=== PATIENT | male | born 1940 | race Caucasian/White ===

== ENCOUNTER → 2021-11-20 09:52 | Outpatient (REF) | payer MEDICARE, SELFPAY | LOC: ANHLAB 09:52 | PROVIDERS: PCP Internal Medicine; Visit Provider Nurse Practitioner | DX: C44.729 Squamous cell carcinoma of skin of left lower limb, including hip (principal) | CPT/HCPCS: 88305; 88331 ==

== ENCOUNTER 2022-01-03 14:06 | Outpatient (CLI) | payer MEDICARE, SELFPAY ==
--- NOTE | ~2022-01-03 | US_ITS ---
EXAMINATION: US renal BI EXAM DATE: 01/03/2022 14:38 INDICATION: Chronic Kidney Disease Stage 3b TECHNIQUE: Multiple grayscale and Doppler images of the kidneys were obtained (by a technologist who performed the scan) and subsequently reviewed. There is no prior study for comparison. FINDINGS: Right kidney: There is normal contour and echogenicity. It measures 9.3 x 5.1 x 6.1 centimeters. Th ere are no focal renal lesions identified. There is no hydronephrosis. Left kidney: There is normal contour and echogenicity. It measures 10.4 x 5.7 x 6.7 centimeters. Th ere are no focal renal lesions identified. There is no hydronephrosis. Bladder unremarkable. IMPRESSION: 1. Sonographically unremarkable kidneys. Reviewed, dictated and finalized at location B. ON INFORMATION SPECIALIST
== END 2022-01-03 14:07 | disposition home or self-care (01) ==
LOC: ANHIMG 14:09
PROVIDERS: PCP Internal Medicine; Visit Provider Internal Medicine Nephrology
DX: N18.32 Chronic kidney disease, stage 3b (principal)
CPT/HCPCS: 76775

== ENCOUNTER 2022-11-04 10:25 | Inpatient (IN) | payer MEDICARE, SELFPAY ==
--- NOTE | ~2022-11-04 | CT_ITS ---
EXAMINATION: CT abdomen pelvis wo con DATE: 11/04/2022 13:11 INDICATION: Upper abdominal pain. TECHNIQUE: Computed tomography (CT) of the abdomen and pelvis was performed without intravenous contr ast. Automated exposure control and iterative reconstruction technique were employed. The dose-length product was 591.50 mGy-cm. COMPARISON: CT abdomen and pelvis 07/18/2017 FINDINGS: The visualized portions of the lung bases demonstrate mild atelectasis. No pleural effusion . The heart size is normal. There are coronary artery calcifications. No pericardial effusion. There are likely changes of coronary artery bypass grafting. Calcified left hilar lymph nodes are consisten t with old granulomatous disease. The liver is normal. There are changes of cholecystectomy. Calcific ations in the spleen are consistent with old granulomatous disease. The pancreas demonstrates enlarge ment, calcifications, duct dilatation, and surrounding fat stranding, consistent with [id number] c pancreatitis. The adrenal glands and right kidney are normal. There is a 3 mm stone in left kidney. There is a 10 mm cyst of left kidney. There is diverticulosis of the colon without evidence of diver ticulitis. The appendix is not visualized. There are no dilated loops of bowel. There are no patholog ically enlarged lymph nodes. There is no free intraperitoneal fluid. There is prominent fat in the in guinal canals that may be hernias. There is severe lumbar spondylosis. IMPRESSION: 1. Acute on chronic pancreatitis. Reviewed, dictated and finalized at location A. E ROLLER
[2022-11-04 10:50] VITALS: BP 124/75; PULSE 94; RESP 16; TEMP 36.4; O2SAT 100
--- NOTE | 2022-11-04 12:02 | ED.ABDPAIN ---
HPI - Abdominal Pain General Chief Complaint: Abdominal Pain Stated Complaint: ABD PAIN,N/V/D Time Seen by Provider: 11/04/22 11:51 History of Present Illness HPI narrative: 82-year-old male history of coronary artery disease status post CABG. Hyperlipidemia, diabetes, hypertension and distant history of pancreatitis presents emergency room with upper abdominal pain has been present for 10 days. Patient denies any radiating pain. Unable to describe pain but states that it is intermittent. Denies diarrhea or constipation. States became nauseated this morning which is what caused him to come seek Treatment. Related Data Home Medications Medication Instructions Recorded Confirmed aspirin 81 mg tablet,delayed 81 mg PO DAILY 01/03/21 08/01/22 release (Adult Low Dose Aspirin) hydrochlorothiazide 25 mg tablet 25 mg PO 07/16/22 08/01/22 Allergies Allergy/AdvReac Type Severity Reaction Status Date / Time No Known Allergies Allergy Unknown Verified 08/01/22 11:06 Review of Systems Review of Systems: CONSTITUTIONAL: Denies fever, chills, or sweats. EYES: Denies visual changes, redness, or discharge. ENT: Denies rhinorrhea, congestion, sore throat, or otalgia. CARDIOVASCULAR: Denies chest pain, palpitations, or edema. RESPIRATORY: Denies cough or dyspnea. GASTROINTESTINAL: Reports abdominal pain, nausea and vomiting GENITOURINARY: Denies dysuria or hematuria. SKIN: Denies rash or itching. MUSCULOSKELETAL: Denies back pain, joint pain, or myalgia. NEUROLOGIC: Denies headache, numbness, dizziness, or weakness. PSYCHIATRIC: Denies anxiety or depression. [facility], [facility] Past Medical History Medical History Bladder cancer CAD (coronary artery disease) Chronic pancreatitis 2008, x3 CRD (chronic renal disease), stage III Diabetes Heart attack Hyperkalemia Hyperlipidemia Hypertension Pancreatitis Peripheral neuropathy Squamous cell carcinoma of lower leg Type 2 diabetes mellitus with hyperglycemia, without long-term current use of insulin Vision loss Surgical History Surgical History History of appendectomy History of bladder surgery History of cataract surgery Hx of cholecystectomy S/P CABG (coronary artery bypass graft) Family History Family History Other Skin cancer Social History Social History Smoking status: Former smoker Alcohol intake: current Exam Narrative: GENERAL: Chronically ill appearing, well-nourished HEAD: Normocephalic, atraumatic. EYES: Conjunctivae normal, PERRLA and EOMI. CHEST: Clear to auscultation. No respiratory distress. No wheezes rales or rhonchi. HEART: Regular rate and rhythm. No murmur heard. Normal peripheral pulses. ABDOMEN: Soft, periumbilical/epigastric tenderness, nondistended, normal active bowel sounds. BACK: No CVA tenderness EXTREMITIES: Normal range of motion. No edema. No clubbing or cyanosis SKIN: Warm, dry, no rash. No noted wounds NEURO: No focal deficits. Alert and oriented x3. MAEW. CN's II-XI intact bilaterally PSYCH: Cooperative. Normal mood and affect. Course Course Emergency Course: 1330: 8 loss. Recommending hospitalization for hydration and pain management. Vital Signs Vital signs: Vital Signs Temperature 36.4 C L 11/04/22 10:50 Pulse Rate 94 11/04/22 10:50 Respiratory Rate 16 11/04/22 10:50 Blood Pressure 124/75 11/04/22 10:50 Pulse Oximetry 100 11/04/22 10:50 Temperature 36.4 C L 11/04/22 10:50 Pulse Rate 94 11/04/22 10:50 Respiratory Rate 16 11/04/22 10:50 Blood Pressure 124/75 11/04/22 10:50 Pulse Oximetry 100 11/04/22 10:50 MDM - Abdominal Pain MDM Narrative Medical decision making narrative: 82-year-old male presented to the emergency room for evaluation of upper abdominal pain
[2022-11-04 12:16] LABS: Basophils Absolute Auto 0.1 K/mm3 (0.0-0.1); Basophils Percent Auto 0.4 % (0.2-1.2); Eosinophils Percent Auto 0.1 % (0-4.4); Hematocrit 43.1 % (42.0-52.0); Immature Granulocyte Absolute 0.56 K/mm3 (0.00-0.031); Lymphocytes Absolute Auto 1.62 K/mm3 (0.9-3.2); Lymphocytes Percent Auto 8.8 % (18.3-44.2); Mean Corpuscular HGB Conc 34.8 g/dl (32-36); Mean Corpuscular Hemoglobin 31.1 pg (26-34); Mean Corpuscular Volume 89.2 fl (80-100); Mean Platelet Volume 9.7 fl (7.4-10.4); Monocytes Absolute Auto 0.8 K/mm3 (0.1-0.6); Monocytes Percent Auto 4.3 % (2.6-8.5); Neutrophils Absolute Auto 15.4 K/mm3 (1.3-6.7); Neutrophils Percent Auto 83.4 % (45.5-73.1); Platelet Count Result 232 k/mm3 (150-375); Red Blood Count 4.83 M/mm3 (4.6-6.20); Red Cell Distribution Width 14.6 % (11.5-14.5); White Blood Count 18.5 K/mm3 (4.5-10.0)
[2022-11-04 12:28] LABS: Alanine Aminotransferase 72 U/L (6-50); Alkaline Phosphatase 478 U/L (38-126); Anion Gap 15 mmol/L (8-16); Aspartate Amino Transferase 46 U/L (17-59); Bilirubin,Total 1.7 mg/dL (0.2-1.3); Blood Urea Nitrogen 65 mg/dL (9-20); Calcium 9.2 mg/dL (8.4-10.2); Carbon Dioxide 18 mmol/L (22-30); Chloride 100 mmol/L (98-107); Estimated CRCL calculation 21 ml/min; Estimated Glomerular Filt Rate 29; Glucose 303 mg/dL (65-110); Lipase 1683 U/L (23-300); Potassium 4.9 mmol/L (3.4-5.0); Sodium 133 mmol/L (137-145)
[2022-11-04] MEDS: SODIUM CHLORIDE 0.9% IV 1,000 ML 999 ML IV CONT ×2 (12:47→13:57)
[2022-11-04] MEDS: ONDANSETRON INJ 4 MG/2 ML VIAL IV PUSH (12:48)
[2022-11-04] MEDS: MORPHINE SULFATE (*CRX) 4 MG/ML INJ IV PUSH (12:48)
--- NOTE | 2022-11-04 13:08 | PC.NURSE ---
Patient unable to urinate at this time. Urinal placed at bedside.
[2022-11-04 13:42] LABS: Influenza A QL RT-PCR Negative (Negative); Influenza B QL RT-PCR Negative (Negative); RSV RNA, RT-PCR Negative (Negative); SARS-CoV-2 RNA PCR Negative
--- NOTE | 2022-11-04 13:45 | PM.IMHP ---
H&P: HPI History of Present Illness Date/Time: 11/04/22 13:45 Chief Complaint: Upper abdominal pain. Narrative: This is a very pleasant 82-year-old male with history of pancreatitis, insulin-dependent type 2 diabetes mellitus, hypertension, hyperlipidemia, chronic kidney disease, and coronary artery disease status post CABG who presented to the emergency department from home for evaluation of upper abdominal pain. He has not been feeling well for upwards of 10 days with a constant, aching discomfort in the epigastric region that at times is sharp and shooting in nature, radiating through to the back. The pain is worse when lying on either side and seems to be a bit better when sitting up. He has not noticed any significant relation to food though he admits that his appetite has been poor and he has had pretty persistent nausea with intermittent episodes of emesis. Otherwise he has been eating a bland diet to include toast and soup. He has not taken any medication at home for his symptoms. His symptoms are similar to when he had pancreatitis in the past. Vital signs were stable on arrival to the emergency department. Workup was significant for a WBC of 18.5, sodium 133, serum carbon dioxide 18, BUN 65, creatinine 2.20, glucose 303, total bili I 0.7, AST 46, ALT 72, alkaline phosphatase 478, lipase 1683. CT of the abdomen and pelvis showed findings of acute on chronic pancreatitis and he is being admitted in this setting for supportive care. At the time my evaluation he is feeling quite a bit better after receiving IV fluids, Zofran, and morphine. He has never been given a reason for prior episodes of pancreatitis (denies hypertriglyceridemia, heavy alcohol use, family history of such, etc. and he is status post cholecystectomy). Review of Systems Review of Systems: Twelve systems were reviewed. No fever but he has had some chills. No cold or flu symptoms. He denies chest pain shortness a breath. He had some loose stools within the last week but that is improving. No dysuria or other urinary symptoms. His glucose has been running high the last several days which he finds to be odd as he has not been eating much at all. Except as documented, all other systems were reviewed and are negative. [facility] Past Medical History Medical History (Updated 11/04/22 @ 15:04 by Augusta G. Gerling, PA-C) Benign prostatic hyperplasia Bladder cancer Chronic kidney disease, stage 3 Chronic pancreatitis Hyperlipidemia Hypertension Insulin dependent type 2 diabetes mellitus Peripheral neuropathy Squamous cell carcinoma of lower leg Type 2 diabetes mellitus with hyperglycemia, without long-term current use of insulin Vision loss Surgical History Surgical History (Updated 11/04/22 @ 14:56 by Augusta Mantilla PA-C) History of appendectomy History of bladder surgery History of cataract surgery History of cholecystectomy History of coronary artery bypass graft Family History Family History Other Skin cancer Social History Social History (Updated 11/04/22 @ 14:59 by Augusta Mantilla PA-C) Social History: Surrogate medical decision maker: Claudia Montemayor, spouse. Code status: Full code. Smoking status: Former smoker Alcohol intake: current Alcohol use details: Social alcohol use in moderation. Additional living arrangements comments: Lives in [place] with spouse. Originally from [place]. 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 Meds Home Medications and Allergies Home Medications Medication Instructions Recorded Confirmed Type aspirin 81 mg tablet,delayed 81 mg PO DAILY 01/03/21 08/01/22 History release (Adult Low Dose Aspirin) blood-glucose meter #1 ea 06/06/21 08/01/22 Rx pen needle, diabetic 31 gauge x #200 ea 02/20/22 08/01/22 Rx 5/16 (Pen Needle) insulin aspar prot-insulin aspart 60 unit (0.6 mL) subcut DAILY 90 05/21/22 08/01/22
[2022-11-04 13:58] VITALS: BP 149/71; PULSE 88; RESP 18; O2SAT 99
[2022-11-04] MEDS: SODIUM CHLORIDE 0.9% IV 1,000 ML 150 ML IV CONT ×2 (15:33→22:35)
[2022-11-04 16:15] VITALS: BP 134/67; PULSE 89; RESP 18; O2SAT 99
[2022-11-04 16:22] LABS: Appearance Urine Clear (Clear); Bilirubin Urine Negative (Negative); Blood Urine Negative (Negative); Color Urine Yellow (Yellow); Glucose Urine UA 2+ mg/dL (Negative); Ketones Urine 1+ mg/dL (Negative); Leukocyte Esterase Ur Negative LEU/UL (Negative); Nitrate Urine Negative (Negative); Protein Urine 1+ mg/dL (Negative); Urobilinogen Urine 0.2 mg/dL (<2.0)
[2022-11-04 16:27] LABS: RBC Urine 0-2 /hpf (0-2); Squamous Epithelial Cell Urine Rare /hpf (Few); WBC Urine 0-3 /hpf
[2022-11-04 16:38] LABS: Add Urine Microscopic? YES
[2022-11-04 17:37] LABS: INR 1.2; Prothrombin Time 14.6 Seconds (11.1-14.7)
[2022-11-04 17:38] LABS: Partial Thromboplastin Time 21.3 SECONDS (22.3-36.8)
[2022-11-04 17:41] LABS: Triglycerides 155 mg/dL (<150)
[2022-11-04 18:44] LABS: Hemoglobin A1C 9.1 % (<5.7)
[2022-11-04 18:45] VITALS: BP 139/69; PULSE 86; RESP 18; TEMP 36.7; O2SAT 99
--- NOTE | 2022-11-04 18:57 | ADMGEN ---
This patient, Jerardo Montemayor, was admitted to [facility] Surg Room 314-01 @ 5955. Patient/family oriented to hospital policies and general routines including ID bracelet, bed and alarms, visiting hours, pain management, procedures, bathroom and other care routines, personal items, smoking policy, room service/diet, and visiting hours. Information on how to activate the Rapid Response Team has been discussed. Patient/Family are encouraged to report perceived risks to care and to ask questions if they do not understand what they are told or what they should do.
--- NOTE | 2022-11-04 18:57 | PC.NURSE ---
Report given to evening rn.
[2022-11-04 19:01] LABS: Glucose Point of Care 232 mg/dl (65-105)
--- NOTE | 2022-11-04 19:50 | ADMGEN ---
This patient, Jerardo Montemayor, was admitted to [facility] Surg Room 314-01. Patient/family oriented to hospital policies and general routines including ID bracelet, bed and alarms, visiting hours, pain management, procedures, bathroom and other care routines, personal items, smoking policy, room service/diet, and visiting hours. Information on how to activate the Rapid Response Team has been discussed. Patient/Family are encouraged to report perceived risks to care and to ask questions if they do not understand what they are told or what they should do.
[2022-11-04 21:38] VITALS: BP 152/68; PULSE 76; RESP 14; TEMP 36.6; O2SAT 99
[2022-11-04] MEDS: HYDROmorphone HCL INJ (*CRX) 1 MG/ML SYR 0.5 MG IV PUSH (22:33)
[2022-11-04 22:56] LABS: Glucose Point of Care 245 mg/dl (65-105)
[2022-11-04 23:11] VITALS: BMI 26.2
--- NOTE | 2022-11-05 00:19 | PC.NURSE ---
Spoke with Augusta Mantilla about Pts blood sugar level & dosing for tonight. The Pt remains NPO.
[2022-11-05] MEDS: SODIUM CHLORIDE 0.9% IV 1,000 ML 150 ML IV CONT ×2 (05:28→18:22)
[2022-11-05] MEDS: INSULIN ASPART (*BKC) 100 UNITS/ML SUB-Q ×3 (05:38→18:15)
[2022-11-05 05:39] VITALS: BP 141/77; PULSE 85; RESP 16; TEMP 36.8; O2SAT 99
[2022-11-05 06:26] LABS: Glucose Point of Care 248 mg/dl (65-105)
[2022-11-05 07:19] LABS: Alanine Aminotransferase 48 U/L (6-50); Albumin Level 3.3 g/dL (3.5-5.1); Alkaline Phosphatase 325 U/L (38-126); Anion Gap 6 mmol/L (8-16); Aspartate Amino Transferase 25 U/L (17-59); Basophils Absolute Auto 0.1 K/mm3 (0.0-0.1); Basophils Percent Auto 0.3 % (0.2-1.2); Bilirubin,Total 0.9 mg/dL (0.2-1.3); Blood Urea Nitrogen 45 mg/dL (9-20); Calcium 8.3 mg/dL (8.4-10.2); Carbon Dioxide 21 mmol/L (22-30); Chloride 105 mmol/L (98-107); Eosinophils Percent Auto 0.1 % (0-4.4); Estimated CRCL calculation 29 ml/min; Estimated Glomerular Filt Rate 41; Glucose 252 mg/dL (65-110); Hematocrit 39.3 % (42.0-52.0); Hemoglobin 13.2 g/dL (14.0-18.0); Immature Granulocyte Absolute 0.28 K/mm3 (0.00-0.031); Immature Granulocyte Percent A 1.7 % (0-0.5); Lipase 979 U/L (23-300); Lymphocytes Absolute Auto 2.38 K/mm3 (0.9-3.2); Lymphocytes Percent Auto 14.8 % (18.3-44.2); Magnesium 1.9 mg/dL (1.6-2.3); Mean Corpuscular HGB Conc 33.6 g/dl (32-36); Mean Corpuscular Hemoglobin 30.3 pg (26-34); Mean Corpuscular Volume 90.3 fl (80-100); Mean Platelet Volume 9.8 fl (7.4-10.4); Monocytes Absolute Auto 1.2 K/mm3 (0.1-0.6); Monocytes Percent Auto 7.6 % (2.6-8.5); Neutrophils Absolute Auto 12.1 K/mm3 (1.3-6.7); Neutrophils Percent Auto 75.5 % (45.5-73.1); Platelet Count Result 228 k/mm3 (150-375); Potassium 4.9 mmol/L (3.4-5.0); Red Blood Count 4.35 M/mm3 (4.6-6.20); Red Cell Distribution Width 14.6 % (11.5-14.5); Sodium 132 mmol/L (137-145); White Blood Count 16.1 K/mm3 (4.5-10.0)
[2022-11-05 07:48] LABS: Glucose Point of Care 235 mg/dl (65-105)
[2022-11-05 08:30] VITALS: PULSE 81; RESP 16; O2SAT 99
[2022-11-05 08:34] VITALS: PULSE 81
[2022-11-05] MEDS: METOPROLOL SUCCINATE EXT REL 25 MG TABCR PO (08:34)
[2022-11-05] MEDS: ENOXAPARIN 30 MG/0.3 ML SYRINGE SUB-Q (08:35)
[2022-11-05 11:25] LABS: Glucose Point of Care 212 mg/dl (65-105)
--- NOTE | 2022-11-05 12:50 | PM.IMPN ---
Progress Note: A&P Assessment and Plan (1) Acute on chronic pancreatitis: Code(s): K85.90 - Acute pancreatitis without necrosis or infection, unspecified; K86.1 - Other chronic pancreatitis Status: Acute Assessment and Plan: Presented with ongoing epigastric pain over the past 10 days, found to have acute on chronic pancreatitis. Lipase 1683 on presentation Precipitating etiology not entirely clear. He is s/p cholecystectomy many years ago. No ductal dilatation. LFTs within normal limits with the exception of mildly elevated alk phos. Perhaps medication related secondary to pravastatin as this has been shown to be a possible cause. Holding pravastatin at this time. Lipase has improved to 979 today Continue with IV fluid rehydration, decreased to 90 mL per hour Trial clear liquid diet. Advance diet slowly as tolerated Analgesics and antiemetics available as needed (2) Elevated LFTs: Code(s): R79.89 - Other specified abnormal findings of blood chemistry Status: Acute Assessment and Plan: AST and ALT within normal limits. Alk-phos is mildly elevated at 325. Total bilirubin is within normal limits. Continue to trend (3) Acute on chronic kidney failure: Code(s): N17.9 - Acute kidney failure, unspecified; N18.9 - Chronic kidney disease, unspecified Status: Acute Assessment and Plan: Baseline creatinine appears to be 1.7-1.9. Creatinine elevated on presentation at 2.2. Suspect prerenal etiology given improvement with IV fluids. Creatinine is 1.6 today. (4) Dehydration: Code(s): E86.0 - Dehydration Status: Acute Assessment and Plan: Patient has been rehydrated with IV fluids. Continue normal saline. Will begin clear liquids. (5) Insulin dependent type 2 diabetes mellitus: Code(s): E11.9 - Type 2 diabetes mellitus without complications; Z79.4 - exterminator (current) use of insulin Status: Acute Assessment and Plan: A1c is 9.1.Continue Accu-Cheks, sliding scale insulin, and hypoglycemic protocol. Continue with home NovoLog 70/30. Morning and evening doses have been decreased by half as the patient has been NPO. Well monitor with clear liquids and adjust insulin as needed (6) Hypertension: Qualifiers: Hypertension type: essential hypertension Qualified Code(s): I10 - Essential (primary) hypertension Code(s): I10 - Essential (primary) hypertension Status: Acute Assessment and Plan: Blood pressure is remaining stable. Continue home metoprolol succinate. Monitor blood pressure trends (7) Benign prostatic hyperplasia: Code(s): N40.0 - Benign prostatic hyperplasia without lower urinary tract symptoms Status: Acute Assessment and Plan: No acute issues. Continue finasteride (8) Leukocytosis: Code(s): D72.829 - Elevated white blood cell count, unspecified Status: Acute Assessment and Plan: WBC 18.5 on presentation. Possibly reactive secondary to acute pancreatitis. No signs/symptoms to suggest acute infection no indication for antibiotics at this time. Improvement in WBC to 16.1 today. Continue to monitor CBC Subjective Date/time seen: 11/05/22 12:50 Interval history: Date of service: 11/05/2022 Jerardo Montemayor is an 82-year-old male with history of bladder cancer, BPH, CKD, hypertension, hyperlipidemia, type 2 diabetes mellitus, and questionable history of chronic pancreatitis (patient reports his last episode of pancreatitis was 15 years ago) who is seen in follow-up for acute pancreatitis. Patient reports that he is feeling better today. His abdominal pain has resolved. This morning he had about 3 episodes of shooting pain it is which read across his abdomen, however no recent episodes. He denies nausea or vomiting. He has been NPO today. He would like to trial clear liquids. Reports regular bowel movements. Denies diarrhea, melena,
[2022-11-05] MEDS: FINASTERIDE 5 MG TABLET PO (13:33)
[2022-11-05 14:00] VITALS: BP 168/73; PULSE 85; RESP 16; TEMP 36.3; O2SAT 100
[2022-11-05 17:07] LABS: Glucose Point of Care 281 mg/dl (65-105)
[2022-11-05 20:00] VITALS: BP 168/73; PULSE 78; RESP 22; TEMP 36.4; O2SAT 98
[2022-11-05 21:11] LABS: Glucose Point of Care 190 mg/dl (65-105)
[2022-11-05 21:57] VITALS: BP 168/73; PULSE 78; RESP 22; TEMP 36.4; O2SAT 98
[2022-11-06 05:34] VITALS: BP 166/85; PULSE 94; RESP 20; TEMP 36.5; O2SAT 98
[2022-11-06 06:39] LABS: Hematocrit 36.5 % (42.0-52.0); Hemoglobin 12.6 g/dL (14.0-18.0); Mean Corpuscular HGB Conc 34.5 g/dl (32-36); Mean Corpuscular Hemoglobin 30.4 pg (26-34); Mean Corpuscular Volume 88.2 fl (80-100); Mean Platelet Volume 9.6 fl (7.4-10.4); Platelet Count Result 242 k/mm3 (150-375); Red Blood Count 4.14 M/mm3 (4.6-6.20); Red Cell Distribution Width 14.5 % (11.5-14.5)
[2022-11-06 06:56] LABS: Alanine Aminotransferase 43 U/L (6-50); Albumin Level 3.1 g/dL (3.5-5.1); Alkaline Phosphatase 325 U/L (38-126); Anion Gap 7 mmol/L (8-16); Aspartate Amino Transferase 32 U/L (17-59); Bilirubin,Total 1.1 mg/dL (0.2-1.3); Blood Urea Nitrogen 25 mg/dL (9-20); Calcium 8.2 mg/dL (8.4-10.2); Carbon Dioxide 18 mmol/L (22-30); Chloride 106 mmol/L (98-107); Estimated CRCL calculation 38 ml/min; Estimated Glomerular Filt Rate 58; Glucose 155 mg/dL (65-110); Lipase 546 U/L (23-300); Potassium 4.2 mmol/L (3.4-5.0); Sodium 131 mmol/L (137-145)
[2022-11-06 07:50] LABS: Glucose Point of Care 196 mg/dl (65-105)
[2022-11-06 08:00] VITALS: BP 161/65; PULSE 78; RESP 16; TEMP 36.9; O2SAT 97
[2022-11-06 09:39] VITALS: PULSE 88
[2022-11-06] MEDS: ENOXAPARIN 30 MG/0.3 ML SYRINGE SUB-Q (09:39)
[2022-11-06] MEDS: METOPROLOL SUCCINATE EXT REL 25 MG TABCR PO (09:39)
[2022-11-06] MEDS: FINASTERIDE 5 MG TABLET PO (09:40)
[2022-11-06 11:56] LABS: Glucose Point of Care 260 mg/dl (65-105)
[2022-11-06] MEDS: INSULIN ASPART (*BKC) 100 UNITS/ML SUB-Q (11:56)
--- NOTE | 2022-11-06 11:59 | PM.DS ---
DS: Admitting Diagnosis Discharge Date 11/06/2022 Admitting Diagnosis pancreatitis DS: Discharge Diagnosis Discharge Diagnosis (1) Acute on chronic pancreatitis: Code(s): K85.90 - Acute pancreatitis without necrosis or infection, unspecified; K86.1 - Other chronic pancreatitis Status: Acute Assessment and Plan: Presented with ongoing epigastric pain over the past 10 days, found to have acute on chronic pancreatitis. Lipase 1683 on presentation Precipitating etiology not entirely clear. He is s/p cholecystectomy many years ago. No ductal dilatation. LFTs within normal limits with the exception of mildly elevated alk phos. Perhaps medication related secondary to pravastatin as this has been shown to be a possible cause. Pravastatin held until outpatient follow up Lipase improved to 546 following IV fluid rehydration and bowel rest Patient was advanced to low fat diet which he tolerated well and will continue (2) Elevated LFTs: Code(s): R79.89 - Other specified abnormal findings of blood chemistry Status: Acute Assessment and Plan: AST and ALT within normal limits. Alk-phos mildly elevated. Total bilirubin within normal limits. Continue to follow as outpatient (3) Acute on chronic kidney failure: Code(s): N17.9 - Acute kidney failure, unspecified; N18.9 - Chronic kidney disease, unspecified Status: Acute Assessment and Plan: Baseline creatinine appears to be 1.7-1.9. Creatinine elevated on presentation to 2.2. Suspect prerenal etiology given improvement with IV fluids. Creatinine returned to baseline (4) Dehydration: Code(s): E86.0 - Dehydration Status: Acute Assessment and Plan: Patient was rehydrated with IV fluids and tolerating PO intake (5) Insulin dependent type 2 diabetes mellitus: Code(s): E11.9 - Type 2 diabetes mellitus without complications; Z79.4 - jail (current) use of insulin Status: Chronic Assessment and Plan: A1c is 9.1. Continue with home NovoLog 70/30. (6) Hypertension: Qualifiers: Hypertension type: essential hypertension Qualified Code(s): I10 - Essential (primary) hypertension Code(s): I10 - Essential (primary) hypertension Status: Chronic Assessment and Plan: Blood pressure is remaining stable. Continue home metoprolol succinate. Monitor blood pressure trends (7) Benign prostatic hyperplasia: Code(s): N40.0 - Benign prostatic hyperplasia without lower urinary tract symptoms Status: Chronic Assessment and Plan: No acute issues. Continue finasteride (8) Leukocytosis: Code(s): D72.829 - Elevated white blood cell count, unspecified Status: Acute Assessment and Plan: WBC 18.5 on presentation. Possibly reactive secondary to acute pancreatitis. No signs/symptoms to suggest acute infection no indication for antibiotics at this time. Slight improvement though remained elevated. Continue to follow with PCP DS: Summary Hospital Course Hospital Course: Date of admission: 11/04/2022 Date of discharge: 11/06/2022 Jerardo Montemayor is an 82-year-old male with history of bladder cancer, BPH, CKD, hypertension, hyperlipidemia, type 2 diabetes mellitus, and questionable history of chronic pancreatitis (patient reports his last episode of pancreatitis was 15 years ago) who presented to the [place] department on 11/04/2022 with complaints of epigastric pain ongoing for 10 days. On presentation to the ED, his vital signs were stable, he was afebrile, CT of the abdomen/pelvis showed acute on chronic pancreatitis and lipase was elevated at 1683. The patient was admitted to the hospitalist service for further evaluation and management. Please see above for further details. Initially was placed on bowel rest and was rehydrated. He had symptomatic improvement and diet was slowly advanced. He was eventually able to tolerate a low
[2022-11-06 12:00] VITALS: BP 145/65; PULSE 81; RESP 16; TEMP 36.6; O2SAT 97
== END 2022-11-06 14:15 | disposition home or self-care (01) | DRG 439 ==
LOC: ANHED 13:48 → ANH3MEDSUR 11-05 06:56
PROVIDERS: Physician Assistant; Preventive Medicine Aerospace Medicine; Admitting Provider Family Medicine; Emergency Provider Nurse Practitioner Family; PCP Internal Medicine; Visit Provider Physician Assistant
DX: K85.90 Acute pancreatitis without necrosis or infection, unspecified (principal); N17.9 Acute kidney failure, unspecified; K86.1 Other chronic pancreatitis; I12.9 Hypertensive chronic kidney disease with stage 1 through stage 4 chronic kidney disease, or unspecified chronic kidney disease; E11.22 Type 2 diabetes mellitus with diabetic chronic kidney disease; Z20.822 Contact with and (suspected) exposure to COVID-19; E86.0 Dehydration; E11.42 Type 2 diabetes mellitus with diabetic polyneuropathy; E78.5 Hyperlipidemia, unspecified; N18.30 Chronic kidney disease, stage 3 unspecified; D72.829 Elevated white blood cell count, unspecified; N40.0 Benign prostatic hyperplasia without lower urinary tract symptoms; Z95.1 Presence of aortocoronary bypass graft; Z79.4 Long term (current) use of insulin; Z79.82 Long term (current) use of aspirin; Z90.49 Acquired absence of other specified parts of digestive tract; Z85.828 Personal history of other malignant neoplasm of skin; Z85.51 Personal history of malignant neoplasm of bladder; Z87.891 Personal history of nicotine dependence
CPT/HCPCS: 36415; 74176; 80053; 81001; 82948; 83036; 83690; 83735; 84478; 85025; 85027; 85610; 85730; 87637; 96361; 96374; 96375; 99285; A9270; J1170; J1650; J1815; J2270; J2405; J7030